=== PATIENT | male | born 1985 ===

== ENCOUNTER → 2025-02-05 | Outpatient (CLI) | payer OTHER ==
[~2025-02-05] MED LIST: LISI-893 PO; METF-1211 PO
== END | disposition home or self-care (01) ==
LOC: TELEHEALTH 10:59
PROVIDERS: ATTEND Internal Medicine
DX: I10 Essential (primary) hypertension (principal); I49.3 Ventricular premature depolarization; R00.2 Palpitations; R73.03 Prediabetes; Z79.84 Long term (current) use of oral hypoglycemic drugs; Z79.899 Other long term (current) drug therapy; Z86.16 Personal history of COVID-19
CPT/HCPCS: Q3014

== ENCOUNTER → 2025-09-03 | Outpatient (CLI) | payer OTHER ==
[~2025-09-03] MED LIST changes: +CARV3 PO
== END | disposition home or self-care (01) ==
LOC: TELEHEALTH 07-16 14:35
PROVIDERS: ATTEND Internal Medicine
DX: I10 Essential (primary) hypertension (principal); I49.3 Ventricular premature depolarization; R73.03 Prediabetes; Z79.84 Long term (current) use of oral hypoglycemic drugs; Z79.899 Other long term (current) drug therapy; Z86.16 Personal history of COVID-19
CPT/HCPCS: Q3014